=== PATIENT | female | born 1940 | race Caucasian/White ===

== ENCOUNTER → 2017-11-15 | Outpatient (CLI) | payer MEDICARE ==
--- NOTE | 2017-11-15 15:30 | US ---
EXAMINATION TYPE: US abdomen complete DATE OF EXAM: 11/15/2017 COMPARISON: NONE CLINICAL HISTORY: R74.8 Elevated liver enzymes; on medication for AFIB and HTN EXAM MEASUREMENTS: Liver Length: 14.1cm Gallbladder Wall: 0.1cm CBD: 0.5cm Spleen: 5.4cm Right Kidney: 9.9 x 4.9 x 3.8cm Left Kidney: 9.0 x 5.9 x 4.7cm Pancreas: wnl Liver: no masses are seen Gallbladder: wnl Evidence for sonographic Méndez's sign: no CBD: wnl Spleen: small for size Right Kidney: junctional wedge (fat)defect noted mid cortex on image #59, etc. Left Kidney: wnl Upper IVC: wnl Abd Aorta: size is wnl; intimal wall changes are noted distally IMPRESSION: 1. Visualized abdominal ultrasound appears unremarkable.
== END | disposition home or self-care (01) ==
LOC: RADUSWWP 08:59
PROVIDERS: ATTEND Family Medicine
DX: R74.8 Abnormal levels of other serum enzymes (principal)
CPT/HCPCS: 76700

== ENCOUNTER → 2018-06-06 | Outpatient (CLI) | payer MEDICARE ==
--- NOTE | 2018-06-06 12:28 | CT ---
EXAMINATION TYPE: CT brain wo con DATE OF EXAM: 06/06/2018 HISTORY: Dizziness, headache and nausea x couple days. Transient cerebral ischemic attack per order CT DLP: 1023.1 mGycm. Automated Exposure Control for Dose Reduction was Utilized. TECHNIQUE: CT scan of the head is performed without contrast. COMPARISON: None. FINDINGS: There is no acute intracranial hemorrhage or midline shift identified. There is diffuse v entricular and sulcal prominence consistent with diffuse age-related cerebral atrophy. There is low- attenuation in the periventricular white matter consistent with chronic small vessel ischemic change. There is 1.3 cm mucous retention cyst or polyp anterior left maxillary sinus axial image 2. Remain dionicio paranasal sinuses are clear. Globes are intact bilaterally. IMPRESSION: No acute intracranial hemorrhage or midline shift. There is mild to moderate diffuse ag e-related cerebral atrophy and chronic small vessel ischemic change noted.
== END ==
LOC: RADCTMAIN 11:30
PROVIDERS: ATTEND Family Medicine
DX: G31.1 Senile degeneration of brain, not elsewhere classified (principal); I67.82 Cerebral ischemia
CPT/HCPCS: 70450

== ENCOUNTER 2023-11-10 18:11 | Observation (INO) | payer MEDICARE ==
[2023-11-10 18:28] LABS: Glucose,Whole Blood 101 mg/dL (70-110)
[2023-11-10] MEDS: SODIUM CHLORIDE 0.9% 1,000 ML IV ONE (18:29)
--- NOTE | 2023-11-10 18:29 | ED ---
General Adult HPI - General Chief complaint: Fall Stated complaint: Altered Time Seen by Provider: 11/10/23 18:19 Source: patient, family, RN notes reviewed Mode of arrival: ambulatory Limitations: no limitations - History of Present Illness Initial comments: Patient is an 83-year-old female presenting to the emergency department with daughter with concern for possible TIA. Patient does have history of TIA with similar symptoms previously. Last known well was yesterday afternoon, greater than 24 hours ago. Patient did call daughter this afternoon however daughter was unable to answer it. Patient was found on the ground less than 2 hours prior to arrival. Patient did complain of feeling dizzy earlier. Patient is unable to recall whether or not she hit her head. Patient states she did twice earlier however denies it to me. When confronted by the daughter patient states she does not recall. No headache. No neck pain. No chest pain or dyspnea. No abdominal pain. Patient's history is inconsistent and patient does have some mild confusion. Patient is on Xarelto for A-fib - Related Data Allergies Allergy/AdvReac Type Severity Reaction Status Date / Time No Known Allergies Allergy Verified 11/10/23 18:19 Review of Systems ROS Statement: Those systems with pertinent positive or pertinent negative responses have been documented in the HPI. ROS Other: All systems not noted in ROS Statement are negative. Constitutional: Denies: fever Eyes: Denies: eye pain ENT: Denies: ear pain Respiratory: Denies: cough Cardiovascular: Denies: chest pain Endocrine: Denies: fatigue Neurological: Reports: as per HPI, confusion. Denies: headache Past Medical History Past Medical History: Hypertension History of Any Multi-Drug Resistant Organisms: None Reported Additional Past Surgical History / Comment(s): carotid stent Past Psychological History: No Psychological Hx Reported Smoking Status: Never smoker Past Alcohol Use History: None Reported Past Drug Use History: None Reported General Exam Limitations: no limitations General appearance: alert, in no apparent distress Head exam: Present: atraumatic, normocephalic Eye exam: Present: normal appearance, PERRL, EOMI ENT exam: Present: normal oropharynx Neck exam: Present: normal inspection. Absent: tenderness Respiratory exam: Present: normal lung sounds bilaterally Cardiovascular Exam: Present: irregular rhythm GI/Abdominal exam: Present: soft. Absent: tenderness Extremities exam: Present: normal inspection, full ROM. Absent: tenderness Neurological exam: Present: alert, CN II-XII intact. Absent: motor sensory deficit Expanded Neurological exam: Present: protecting the airway Patient oriented to: Present: person, place. Absent: time Speech: Present: fluid speech Cranial nerves: EOM's Intact: Normal, Facial Sensation: Normal Sensory exam: Upper Extremity Light Touch: Normal, Lower Extremity Light Touch: Normal Motor strength exam: RUE: 5, LUE: 5, RLE: 5, LLE: 5 Eye Response: (4) open spontaneously Motor Response: (6) obeys commands Verbal Response: (4) confused conversation Psychiatric exam: Present: normal affect, normal mood Skin exam: Present: normal color Course Vital Signs 11/10/23 11/10/23 11/10/23 18:13 18:25 18:52 Temperature 97.9 F Pulse Rate 102 H 89 91 Respiratory 18 16 16 Rate Blood Pressure 152/100 145/104 151/98 O2 Sat by Pulse 99 98 99 Oximetry EKG Findings - EKG Results: EKG: interpreted by ERMD (Septal Q waves.), normal axis, normal ST/T EKG shows: atrial fibrillation Medical Decision Making - Medical Decision Making Was pt. sent in by a medical professional or institution (, PA, FRUIT LOADER, urgent care, hospital, or long term...) When possible be specific @ -No Did you speak to anyone other than the patient for history (EMS, parent, family, police, friend...)? What history was obtained from this source @ -Is present helps provide history as patient does not recall well Did you review nursing and triage notes (agree or disagree)? Why? @ -I reviewed and agree with nursing and triage notes Were old charts reviewed (outside hosp., previous admission, EMS record, old EKG, old radiological studies, urgent care reports/EKG's, long term records)? Report findings @ -No old charts were reviewed Differential Diagnosis (chest pain, altered mental status, abdominal pain women, abdominal pain men, vaginal bleeding, weakness, fever, dyspnea, syncope, heada rosa, dizziness, GI bleed, back pain, seizure, CVA, palpatations, mental health, musculoskeletal)? @ -Differential Altered Mental Status: Hypoglycemia, DKA, hypercapnia, ETOH, overdose, CO poisoning, trauma, myxedema coma, HTN encephalopathy, infection, encephalitis, psychosis, intercranial hemorrhage, hepatic encephalopathy, meningitis, CVA, this is not meant to be an all-inclusive list EKG interpreted by me (3pts min.). @ -As above X-rays interpreted by me (1pt min.). @ -X-ray and pelvis x-ray showed no acute process CT interpreted by me (1pt min.). @ -Scan brain and cervical spine without acute abnormality. Degenerative disease of the disc. U/S interpreted by me (1pt. min.). @ -None done What testing was considered but not performed or refused? (CT, X-rays, U/S, labs)? Why? @ -None What meds were considered but not given or refused? Why? @ -None Did you discuss the management of the patient with other professionals (professionals i.e. , PA, FRUIT LOADER, lab, RT, psych nurse, rn social services, laboratory operations coordinator, teacher, sergeant of officers, transplant case manager)? Give summary @ -Case discussed with Dr. Chappell who will admit covering hospital call Was smoking cessation discussed for >3mins.? @ -No Was critical care preformed (if so, how long)? @ -No Were there social determinants of health that impacted care today? How? (Homelessness, low income, unemployed, alcoholism, drug addiction, transportati on, low edu. Level, literacy, decrease access to med. care, usp, rehab)? @ -No Was there de-escalation of care discussed even if they declined (Discuss DNR or withdrawal of care, Hospice)? DNR status @ -No What co-morbidities impacted this encounter? (DM, HTN, Smoking, COPD, CAD, Cancer, CVA, ARF, Chemo, Hep., AIDS, mental health diagnosis, sleep apnea, morbid obesity)? @ -History of TIA Was patient admitted / discharged? Hospital course, mention meds given and route, prescriptions, significant lab abnormalities, going to OR and other pertinent info. @ -Presents with confusion consistent with previous TIAs. CT scan unremarkable. Patient will be admitted with neurology consult. Admission orders written. Undiagnosed new problem with uncertain prognosis? @ -No Drug Therapy requiring intensive monitoring for toxicity (Heparin, Nitro, Insulin, Cardizem)? @ -No Were any procedures done? @ -No Diagnosis/symptom? @ -Confused Acute, or Chronic, or Acute on Chronic? @ -Acute Uncomplicated (without systemic symptoms) or Complicated (systemic symptoms)? @ -Default Side effects of treatment? @ -No Exacerbation, Progression, or Severe Exacerbation? @ -No Poses a threat to life or bodily function? How? (Chest pain, USA, ND, pneumonia, PE, COPD, DKA, ARF, appy, cholecystitis, CVA, Diverticulitis, Homicidal, Suicidal, threat to staff... and all critical care pts) @ -Threat to neurological function - Lab Data Result diagrams: 11/10/23 18:31 11/10/23 18:31 Lab Results 11/10/23 11/10/23 11/10/23 Range/Units 18:27 18:31 18:31 WBC 9.1 (3.8-10.6) k/uL RBC 5.22 (3.80-5.40) m/uL Hgb 16.4 H (11.4-16.0) gm/dL Hct 49.7 H (34.0-46.0) % MCV 95.1 (80.0-100.0) fL MCH 31.4 (25.0-35.0) pg MCHC 33.0 (31.0-37.0) g/dL RDW 13.3 (11.5-15.5) % Plt Count 249 (150-450) k/uL MPV 8.7 Neutrophils % 91 % Lymphocytes % 5 % Monocytes % 4 % Eosinophils % 1 % Basophils % 0 % Neutrophils # 8.2 H (1.3-7.7) k/uL Lymphocytes # 0.4 L (1.0-4.8) k/uL Monocytes # 0.3 (0-1.0) k/uL Eosinophils # 0.1 (0-0.7) k/uL Basophils # 0.0 (0-0.2) k/uL PT 11.4 (10.0-12.5) sec INR 1.1 (<1.2) APTT 29.0 (22.0-30.0) sec Sodium (137-145) mmol/L Potassium (3.5-5.1) mmol/L Chloride (98-107) mmol/L Carbon Dioxide (22-30) mmol/L Anion Gap mmol/L BUN (7-17) mg/dL Creatinine (0.52-1.04) mg/dL Est GFR (CKD-EPI)AfAm (>60 ml/min/1.73 sqM) Est GFR (CKD-EPI)NonAf (>60 ml/min/1.73 sqM) Glucose (74-99) mg/dL POC Glucose (mg/dL) 101 (70-110) mg/dL POC Glu Branch General Manager ID Gloria Sood Calcium (8.4-10.2) mg/dL Total Bilirubin (0.2-1.3) mg/dL AST (14-36) U/L ALT (4-34) U/L Alkaline Phosphatase (38-126) U/L Creatine Kinase (30-135) U/L Troponin I (0.000-0.034) ng/mL Total Protein (6.3-8.2) g/dL Albumin (3.5-5.0) g/dL Urine Color Urine Appearance (Clear) Urine pH (5.0-8.0) Ur Specific Alvin (1.001-1.035) Urine Protein (Negative) Urine Glucose (UA) (Negative) Urine Ketones (Negative) Urine Blood (Negative) Urine Nitrite (Negative) Urine Bilirubin (Negative) Urine Urobilinogen (<2.0) mg/dL Ur Leukocyte Esterase (Negative) Urine RBC (0-5) /hpf Urine WBC (0-5) /hpf Ur Squamous Epith Cells (0-4) /hpf Urine Bacteria (None) /hpf Urine Mucus (None) /hpf Urine Opiates Screen (NotDetected) Ur Oxycodone Screen (NotDetected) Urine Methadone Screen (NotDetected) Ur Barbiturates Screen (NotDetected) U Tricyclic Antidepress (NotDetected) Ur Phencyclidine Scrn (NotDetected) Ur Amphetamines Screen (NotDetected) U Methamphetamines Scrn (NotDetected) U Benzodiazepines Scrn (NotDetected) Urine Cocaine Screen (NotDetected) U Marijuana (THC) Screen (NotDetected) 11/10/23 11/10/23 11/10/23 Range/Units 18:31 18:31 18:31 WBC (3.8-10.6) k/uL RBC (3.80-5.40) m/uL Hgb (11.4-16.0) gm/dL Hct (34.0-46.0) % MCV (80.0-100.0) fL MCH (25.0-35.0) pg MCHC (31.0-37.0) g/dL RDW (11.5-15.5) % Plt Count (150-450) k/uL MPV Neutrophils % % Lymphocytes % % Monocytes % % Eosinophils % % Basophils % % Neutrophils # (1.3-7.7) k/uL Lymphocytes # (1.0-4.8) k/uL Monocytes # (0-1.0) k/uL Eosinophils # (0-0.7) k/uL Basophils # (0-0.2) k/uL PT (10.0-12.5) sec INR (<1.2) APTT (22.0-30.0) sec Sodium 134 L (137-145) mmol/L Potassium 4.9 (3.5-5.1) mmol/L Chloride 98 (98-107) mmol/L Carbon Dioxide 22 (22-30) mmol/L Anion Gap 14 mmol/L BUN 19 H (7-17) mg/dL Creatinine 0.96 (0.52-1.04) mg/dL Est GFR (CKD-EPI)AfAm 64 (>60 ml/min/1.73 sqM) Est GFR (CKD-EPI)NonAf 55 (>60 ml/min/1.73 sqM) Glucose 102 H (74-99) mg/dL POC Glucose (mg/dL) (70-110) mg/dL POC Glu Branch General Manager ID Calcium 10.5 H (8.4-10.2) mg/dL Total Bilirubin 1.1 (0.2-1.3) mg/dL AST 40 H (14-36) U/L ALT 27 (4-34) U/L Alkaline Phosphatase 94 (38-126) U/L Creatine Kinase 207 H (30-135) U/L Troponin I 0.021 (0.000-0.034) ng/mL Total Protein 8.8 H (6.3-8.2) g/dL Albumin 5.6 H (3.5-5.0) g/dL Urine Color Urine Appearance (Clear) Urine pH (5.0-8.0) Ur Specific Alvin (1.001-1.035) Urine Protein (Negative) Urine Glucose (UA) (Negative) Urine Ketones (Negative) Urine Blood (Negative) Urine Nitrite (Negative) Urine Bilirubin (Negative) Urine Urobilinogen (<2.0) mg/dL Ur Leukocyte Esterase (Negative) Urine RBC (0-5) /hpf Urine WBC (0-5) /hpf Ur Squamous Epith Cells (0-4) /hpf Urine Bacteria (None) /hpf Urine Mucus (None) /hpf Urine Opiates Screen Not Detected (NotDetected) Ur Oxycodone Screen Not Detected (NotDetected) Urine Methadone Screen Not Detected (NotDetected) Ur Barbiturates Screen Not Detected (NotDetected) U Tricyclic Antidepress Not Detected (NotDetected) Ur Phencyclidine Scrn Not Detected (NotDetected) Ur Amphetamines Screen Not Detected (NotDetected) U Methamphetamines Scrn Not Detected (NotDetected) U Benzodiazepines Scrn Not Detected (NotDetected) Urine Cocaine Screen Not Detected (NotDetected) U Marijuana (THC) Screen Not Detected (NotDetected) 11/10/23 Range/Units 18:31 WBC (3.8-10.6) k/uL RBC (3.80-5.40) m/uL Hgb (11.4-16.0) gm/dL Hct (34.0-46.0) % MCV (80.0-100.0) fL MCH (25.0-35.0) pg MCHC (31.0-37.0) g/dL RDW (11.5-15.5) % Plt Count (150-450) k/uL MPV Neutrophils % % Lymphocytes % % Monocytes % % Eosinophils % % Basophils % % Neutrophils # (1.3-7.7) k/uL Lymphocytes # (1.0-4.8) k/uL Monocytes # (0-1.0) k/uL Eosinophils # (0-0.7) k/uL Basophils # (0-0.2) k/uL PT (10.0-12.5) sec INR (<1.2) APTT (22.0-30.0) sec Sodium (137-145) mmol/L Potassium (3.5-5.1) mmol/L Chloride (98-107) mmol/L Carbon Dioxide (22-30) mmol/L Anion Gap mmol/L BUN (7-17) mg/dL Creatinine (0.52-1.04) mg/dL Est GFR (CKD-EPI)AfAm (>60 ml/min/1.73 sqM) Est GFR (CKD-EPI)NonAf (>60 ml/min/1.73 sqM) Glucose (74-99) mg/dL POC Glucose (mg/dL) (70-110) mg/dL POC Glu Branch General Manager ID Calcium (8.4-10.2) mg/dL Total Bilirubin (0.2-1.3) mg/dL AST (14-36) U/L ALT (4-34) U/L Alkaline Phosphatase (38-126) U/L Creatine Kinase (30-135) U/L Troponin I (0.000-0.034) ng/mL Total Protein (6.3-8.2) g/dL Albumin (3.5-5.0) g/dL Urine Color Light Yellow Urine Appearance Cloudy H (Clear) Urine pH 6.5 (5.0-8.0) Ur Specific Alvin 1.013 (1.001-1.035) Urine Protein Negative (Negative) Urine Glucose (UA) Negative (Negative) Urine Ketones 1+ H (Negative) Urine Blood Negative (Negative) Urine Nitrite Negative (Negative) Urine Bilirubin Negative (Negative) Urine Urobilinogen <2.0 (<2.0) mg/dL Ur Leukocyte Esterase Large H (Negative) Urine RBC 4 (0-5) /hpf Urine WBC 14 H (0-5) /hpf Ur Squamous Epith Cells 5 H (0-4) /hpf Urine Bacteria Rare H (None) /hpf Urine Mucus Rare H (None) /hpf Urine Opiates Screen (NotDetected) Ur Oxycodone Screen (NotDetected) Urine Methadone Screen (NotDetected) Ur Barbiturates Screen (NotDetected) U Tricyclic Antidepress (NotDetected) Ur Phencyclidine Scrn (NotDetected) Ur Amphetamines Screen (NotDetected) U Methamphetamines Scrn (NotDetected) U Benzodiazepines Scrn (NotDetected) Urine Cocaine Screen (NotDetected) U Marijuana (THC) Screen (NotDetected) Disposition Clinical Impression: Confusion Disposition: ADMITTED IP TO THIS [facility] Is patient prescribed a controlled substance at d/c from ED?: No Referrals: Porsche Sena MD [Primary Care Provider] - 1-2 days Time of Disposition: 20:28
[2023-11-10 18:50] LABS: Basophils % (A) 0 %; Eosinophils # (A) 0.1 k/uL (0-0.7); Eosinophils % (A) 1 %; HCT 49.7 % (34.0-46.0); HGB 16.4 gm/dL (11.4-16.0); Lymphocytes # (A) 0.4 k/uL (1.0-4.8); Lymphocytes % (A) 5 %; MCH 31.4 pg (25.0-35.0); MCV 95.1 fL (80.0-100.0); Mean Platelet Volume 8.7; Monocytes # (A) 0.3 k/uL (0-1.0); Monocytes % (A) 4 %; Neutrophils # (A) 8.2 k/uL (1.3-7.7); Neutrophils % (A) 91 %; Platelet Count 249 k/uL (150-450); RBC 5.22 m/uL (3.80-5.40); RDW 13.3 % (11.5-15.5); WBC 9.1 k/uL (3.8-10.6)
[2023-11-10 19:00] LABS: ALT 27 U/L (4-34); AST 40 U/L (14-36); African American GFR (CKD) 64 (>60 ml/min/1.73 sqM); Albumin 5.6 g/dL (3.5-5.0); Alkaline Phosphatase 94 U/L (38-126); Anion Gap 14 mmol/L; Blood Urea Nitrogen 19 mg/dL (7-17); Calcium 10.5 mg/dL (8.4-10.2); Carbon Dioxide 22 mmol/L (22-30); Chloride 98 mmol/L (98-107); Creatine Kinase 207 U/L (30-135); Glucose 102 mg/dL (74-99); Non-African American GFR(CKD) 55 (>60 ml/min/1.73 sqM); Potassium 4.9 mmol/L (3.5-5.1); Sodium 134 mmol/L (137-145); Total Bilirubin 1.1 mg/dL (0.2-1.3); Total Protein 8.8 g/dL (6.3-8.2)
[2023-11-10 19:03] LABS: INR 1.1 (<1.2); Prothrombin Time 11.4 sec (10.0-12.5)
--- NOTE | 2023-11-10 19:19 | XR ---
EXAMINATION TYPE: XR chest 1V portable DATE OF EXAM: 11/10/2023 7:12 PM CLINICAL INDICATION:Female, 83 years old with history of altered mental status COMPARISON: None TECHNIQUE: XR chest 1V portable Frontal view of the chest. FINDINGS: Lungs/Pleura: There is no evidence of pleural effusion, focal consolidation, or pneumothorax. Pulmonary vascularity: Unremarkable. Heart/mediastinum: Cardiomediastinal silhouette is unremarkable. Musculoskeletal: No acute osseous pathology. IMPRESSION: No acute cardiopulmonary disease/process.
--- NOTE | 2023-11-10 19:20 | XR ---
EXAMINATION TYPE: XR pelvis AP view DATE OF EXAM: 11/10/2023 7:12 PM CLINICAL INDICATION:Female, 83 years old with history of fall; [facility] COMPARISON: None TECHNIQUE: XR pelvis AP view, examined in a single projection. FINDINGS: No acute fractures or dislocation. Degenerative changes of the bony pelvis and bilateral hi ps. Partially visualized nonspecific nonobstructive bowel gas pattern. IMPRESSION: No acute osseous pathology.
--- NOTE | 2023-11-10 20:11 | CT ---
EXAMINATION TYPE: CT brain cspine wo con CT DLP: 1399.6 mGycm, Automated exposure control for dose reduction was used. DATE OF EXAM: 11/10/2023 6:47 PM COMPARISON: None. CLINICAL INDICATION:Female, 83 years old with history of altered mental status; AMS, fall. Initial e ncounter. TECHNIQUE: Brain: Multiple axial CT images of the brain were obtained without IV contrast. Cspine: Axial CT images from the skull base to the inferior aspect of T2 we obtained without intraven ous contrast. Coronal and sagittal reformatted images were also reviewed. FINDINGS: Study quality: Visualization of brain structures is diminished due to the presence of aneurysm or oth er surgical clips in the sella turcica. Brain: Extra-axial spaces: No abnormal extra-axial fluid collections. Ventricular system: Within normal limits Cerebral parenchyma: No acute intraparenchymal hemorrhage or mass effect. The vaughn-white junction is well differentiated. Scattered hypoattenuating areas are seen within the white matter consistent wit h chronic microangiopathy.. Cerebellum: Unremarkable. Mass effect: No evidence of midline shift. Intracranial vasculature: unremarkable Soft tissues: Normal. Calvarium/osseous structures: No depressed skull fracture. Paranasal sinuses and mastoid air cells: Clear. Visualized orbits: Orbital contents are intact. Cervical spine: Fracture: None. Osseous structures: Multilevel degenerative disc disease, endplate spondylosis. Facet osteoarthritis mostly moderately pronounced hypertrophic spurring. Atlantoaxial arthritic changes. Vertebral alignment: Within normal limits. Spinal canal/Neural Foramina: No evidence of significant spinal canal narrowing. No evidence for sign ificant neural foraminal stenosis. Neck soft tissues: Prevertebral soft tissues are within normal limits. Other: The airway is patent. The lung apices are clear. IMPRESSION: No acute intracranial process. Chronic microangiopathy. No evidence of cervical spine fracture. Moderately pronounced multilevel degenerative disc disease.
[2023-11-10 20:14] LABS: Appearance,Urine Cloudy (Clear); Bacteria,Urine Rare /hpf; Bilirubin,Urine Negative (Negative); Blood,Urine Negative (Negative); Color,Urine Light Yellow; Glucose,Urine (UA) Negative (Negative); Ketones,Urine 1+ (Negative); Leukocyte Esterase,Urine Large (Negative); Mucus,Urine Rare /hpf; Nitrite,Urine Negative (Negative); PH, Urine 6.5 (5.0-8.0); Protein,Urine Negative (Negative); RBC,Urine 4 /hpf (0-5); Specific Gravity,Urine 1.013 (1.001-1.035); Squamous Epithelial Cell,Urine 5 /hpf (0-4); Urobilinogen,Urine <2.0 mg/dL (<2.0); WBC,Urine 14 /hpf (0-5)
[2023-11-10 20:15] LABS: Amphetamine Screen,Urine Not Detected (NotDetected); Barbiturate Screen,Urine Not Detected (NotDetected); Benzodiazepines Screen,Urine Not Detected (NotDetected); Cocaine Screen,Urine Not Detected (NotDetected); Methadone Screen, Urine Not Detected (NotDetected); Opiate Screen,Urine Not Detected (NotDetected); Oxycodone Screen, Urine Not Detected (NotDetected); Phencyclidine Screen,Urine Not Detected (NotDetected); Tricyclic Antidepressant,Urine Not Detected (NotDetected); Urn Cannabinoid Scrn Not Detected (NotDetected)
[2023-11-10] MEDS: ASPIRIN 325 MG TAB PO STA (21:15)
[2023-11-10] MEDS: SODIUM CHLORIDE 0.9% 1,000 ML IV SCH (21:16)
--- NOTE | 2023-11-11 08:07 | US ---
EXAMINATION TYPE: US carotid duplex BILAT DATE OF EXAM: 11/10/2023 COMPARISON: NONE CLINICAL INDICATION: Female, 83 years old with history of Stenosis; Patient states right carotid sten t. Hx of fall TECHNIQUE: Carotid duplex ultrasound examination. Indirect Doppler criteria was utilized. FINDINGS: EXAM MEASUREMENTS: RIGHT: Peak Systolic Velocity (PSV) cm/sec ----- Right CCA: 55.1 ----- Right ICA: 96.9 ----- Right ECA: 54.9 ICA/CCA ratio: 1.8 RIGHT: End Diastole cm/sec ----- Right CCA: 17.3 ----- Right ICA: 25.8 ----- Right ECA: 12.1 LEFT: Peak Systolic Velocity (PSV) cm/sec ----- Left CCA: 58.1 ----- Left ICA: 95.6 ----- Left ECA: 41.0 ICA/CCA ratio: 1.6 LEFT: End Diastole cm/sec ----- Left CCA: 18.4 ----- Left ICA: 29.6 ----- Left ECA: 6.0 VERTEBRALS (direction of flow): Right Vertebral: Antegrade Left Vertebral: Antegrade Rhythm: Arrhythmia HUMAN RESOURCES MANAGER MANUFACTURING NOTES: No significant velocity elevations seen today IMPRESSION: No evidence for hemodynamically significant stenosis. Criteria for Assigning % of Stenosis / Diameter reduction (Estimation based on the indirect measurements of the internal carotid artery velocities (ICA PSV). 1. Normal (no stenosis)=ICA PSV < 125 cm/s: ratio < 2.0: ICA EDV<40 cm/s. 2. Less than 50% stenosis=ICA PSV < 125 cm/s: ratio < 2.0: ICA EDV<40 cm/s. 3. 50 to 69% stenosis=ICA PSV of 125 to 230 cm/s: ration 2.0 ? 4.0: ICA EDV 40-100 cm/s. 4. Greater than 70% stenosis to near occlusion= ICA PSV > 230 cm/s: ratio > 4.0: ICA EDV > 100 cm/s. 5. Near occlusion= ICA PSV velocities may be low or undetectable: variable ratio and ICA EDV. 6. Total occlusion=unable to detect flow.
[2023-11-11] MEDS: ASPIRIN 325 MG TAB PO SCH (08:43)
--- NOTE | 2023-11-11 12:26 | P.HPIM ---
History of Present Illness Patient pleasant 83-year-old female who is alert oriented x 3 when I evaluate the patient and history of dementia was brought in by daughter with concerns of TIA patient had slurred speech. Patient did not have any other weakness. When I asked the patient about her concerns were patient was complaining of lightheadedness to me denies any vertigo. Patient blood pressure was low. Patient does take lisinopril. Patient does have history of atrial fibrillation. Patient is on Xarelto for atrial fibrillation. Patient had a CT of the head which did not show any significant abnormality, carotid Doppler did not show any hemodynamic please significant stenosis. 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 Patient had a pelvic x-ray and hip x-ray which did not show any fractures. REVIEW OF SYSTEMS: All other systems are negative except those mentioned in the HPI PHYSICAL EXAMINATION: GENERAL: The patient is alert and oriented x3, not in any acute distress. Well developed, well nourished. HEENT: Pupils are round and equally reacting to light. EOMI. No scleral icterus. No conjunctival pallor. Normocephalic, atraumatic. No pharyngeal erythema. No thyromegaly. CARDIOVASCULAR: S1 and S2 present. No murmurs, rubs, or gallops. PULMONARY: Chest is clear to auscultation, no wheezing or crackles. ABDOMEN: Soft, nontender, nondistended, normoactive bowel sounds. No palpable organomegaly. MUSCULOSKELETAL: No joint swelling or deformity. EXTREMITIES: No cyanosis, clubbing, or pedal edema. NEUROLOGICAL: Gross neurological examination did not reveal any focal deficits. SKIN: No rashes. Assessment and plan -Lightheadedness: Probably due to hypotension discontinuing her antihypertensive medications patient will be monitored overnight continue with IV fluids -Complaints of slurred speech which were not evident when I evaluated the pa swatierin patient is undergoing evaluation for TIA neurology will evaluate the patient -Atrial fibrillation paroxysmal patient is presently sinus rhythm patient was resumed on home medications along with Xarelto -Hypertension patient is presently hypotensive patient may have lost weight because of her aging and will not require any antiemetics medications DVT prophylaxis: On anticoagulation with Xarelto Past Medical History Past Medical History: Hypertension History of Any Multi-Drug Resistant Organisms: None Reported Additional Past Surgical History / Comment(s): carotid stent Past Psychological History: No Psychological Hx Reported Smoking Status: Never smoker Past Alcohol Use History: None Reported Past Drug Use History: None Reported Medications and Allergies Home Medications Medication Instructions Recorded Confirmed Type Donepezil [Aricept] 10 mg PO DAILY 11/10/23 11/10/23 History Ergocalciferol [Vitamin D2 (1250 1,250 mcg PO PAREKH 11/10/23 11/10/23 History Mcg = 76268 Iu)] NIFEdipine XL [Procardia Xl] 30 mg PO DAILY 11/10/23 11/10/23 History Omeprazole 40 mg PO AC-BRKFST 11/10/23 11/10/23 History Oxybutynin Xl [Ditropan XL] 5 mg PO DAILY 11/10/23 11/10/23 History Rivaroxaban [Xarelto] 15 mg PO DAILY 11/10/23 11/10/23 History lisinopriL [Zestril] 10 mg PO HS 11/10/23 11/10/23 History lisinopriL [Zestril] 20 mg PO DAILY 11/10/23 11/10/23 History methocarbamoL [Robaxin-750] 750 mg PO HS 11/10/23 11/10/23 History Allergies Allergy/AdvReac Type Severity Reaction Status Date / Time No Known Allergies Allergy Verified 11/10/23 20:37 Physical Exam Vitals: Vital Signs Temp Pulse Resp BP Pulse Ox 11/11/23 12:17 79 16 98 11/11/23 11:15 98 14 100/77 98 11/11/23 10:09 87 16 132/77 98 11/11/23 09:04 67 18 143/86 99 11/11/23 08:41 98.3 F 75 18 136/95 99 11/11/23 08:00 98.4 F 64 16 135/93 98 11/11/23 06:14 96 16 122/91 94 L 11/11/23 02:53 71 18 140/105 99 11/11/23 01:35 72 16 140/97 99 11/10/23 21:40 93 16 146/107 98 11/10/23 18:52 91 16 151/98 99 11/10/23 18:25 89 16 145/104 98 11/10/23 18:13 97.9 F 102 H 18 152/100 99 Intake and Output 11/10/23 11/11/23 11/11/23 22:59 06:59 14:59 Other: Weight 61.235 kg Results CBC & Chem 7: 11/10/23 18:31 11/10/23 18:31 Labs: Abnormal Lab Results - Last 24 Hours (Table) 11/10/23 11/10/23 11/10/23 Range/Units 18:31 18:31 18:31 Hgb 16.4 H (11.4-16.0) gm/dL Hct 49.7 H (34.0-46.0) % Neutrophils # 8.2 H (1.3-7.7) k/uL Lymphocytes # 0.4 L (1.0-4.8) k/uL Sodium 134 L (137-145) mmol/L BUN 19 H (7-17) mg/dL Glucose 102 H (74-99) mg/dL Calcium 10.5 H (8.4-10.2) mg/dL AST 40 H (14-36) U/L Creatine Kinase 207 H (30-135) U/L Total Protein 8.8 H (6.3-8.2) g/dL Albumin 5.6 H (3.5-5.0) g/dL Urine Appearance Cloudy H (Clear) Urine Ketones 1+ H (Negative) Ur Leukocyte Esterase Large H (Negative) Urine WBC 14 H (0-5) /hpf Ur Squamous Epith Cells 5 H (0-4) /hpf Urine Bacteria Rare H (None) /hpf Urine Mucus Rare H (None) /hpf
--- NOTE | 2023-11-11 12:26 | P.CNNES ---
History of Present Illness Consult date: 11/11/23 Requesting physician: Raciel Singh Reason for Consult: confusion History of Present Illness: This is an 83-year-old woman who presents to the emergency department because of a fall and feeling lightheaded. Patient states that while at home about 2 days ago she tripped walking in the garage and she miscalculated the step as a result she fell but denies loss of consciousness or head trauma. She denies any urinary or bowel incontinence. No yesterday she felt she is having some speech difficulty. She stated prior to the episode she also felt lightheaded. Denies any focal weakness, numbness, or swallowing issues. She feels in the last few days to a week she has been having spasming of the toes bilaterally and she feels sometimes the spasm is causing the feet to curl down or curl up. Denies any spasm anywhere else. Have lower back pain in the mid region without any radiation or bladder or bowel issues recently. She did acknowledge that she has history of possible stroke in the past as well TIA. She had a right carotid stent about 2 years ago. She has a history of A-fib and she is on Xarelto. Denies tobacco or alcohol use or any illicit drug use. The ED team seems the patient was found on the ground less than 2 hours prior to arrival to our facility. It seems the patient called her daughter yesterday in the afternoon however daughter was unable to answered. Patient was found on the ground as a earlier. She complained dizziness to the ED but for me upon further history she stated lightheadedness. Per the ED the history is inconsistent and the patient does have some confusion. Some of the workup during this hospital visit consisted of: Sodium is 134, calcium is at 10.5, AST is a 40 ALT 27 CK level is 207 Urinalysis is leukocyte esterase is large, urine white blood cells 14 and urine bacteria is rare. CT head is reported as no acute intracranial process. Chronic microangiopathy. I personally reviewed the CT and I agree there is no acute or subacute process CT cervical spine is reported as no evidence of cervical spine fracture. Moderately pronounced multilevel degenerative disc disease. Carotid duplex is reported as no evidence for hemodynamically significant stenosis Review of Systems The positive and negative as per HPI. Past Medical History Past Medical History: Hypertension History of Any Multi-Drug Resistant Organisms: None Reported Additional Past Surgical History / Comment(s): carotid stent Past Psychological History: No Psychological Hx Reported Smoking Status: Never smoker Past Alcohol Use History: None Reported Past Drug Use History: None Reported Medications and Allergies Home Medications Medication Instructions Recorded Confirmed Type Donepezil [Aricept] 10 mg PO DAILY 11/10/23 11/10/23 History Ergocalciferol [Vitamin D2 (1250 1,250 mcg PO PAREKH 11/10/23 11/10/23 History Mcg = 34322 Iu)] NIFEdipine XL [Procardia Xl] 30 mg PO DAILY 11/10/23 11/10/23 History Omeprazole 40 mg PO AC-BRKFST 11/10/23 11/10/23 History Oxybutynin Xl [Ditropan XL] 5 mg PO DAILY 11/10/23 11/10/23 History Rivaroxaban [Xarelto] 15 mg PO DAILY 11/10/23 11/10/23 History lisinopriL [Zestril] 10 mg PO HS 11/10/23 11/10/23 History lisinopriL [Zestril] 20 mg PO DAILY 11/10/23 11/10/23 History methocarbamoL [Robaxin-750] 750 mg PO HS 11/10/23 11/10/23 History Allergies Allergy/AdvReac Type Severity Reaction Status Date / Time No Known Allergies Allergy Verified 11/10/23 20:37 Physical Examination - Vital Signs Vital Signs: Vital Signs Temp Pulse Resp BP Pulse Ox 11/11/23 11:15 98 14 100/77 98 11/11/23 10:09 87 16 132/77 98 11/11/23 09:04 67 18 143/86 99 11/11/23 08:41 98.3 F 75 18 136/95 99 11/11/23 08:00 98.4 F 64 16 135/93 98 11/11/23 06:14 96 16 122/91 94 L 11/11/23 02:53 71 18 140/105 99 11/11/23 01:35 72 16 140/97 99 11/10/23 21:40 93 16 146/107 98 11/10/23 18:52 91 16 151/98 99 11/10/23 18:25 89 16 145/104 98 11/10/23 18:13 97.9 F 102 H 18 152/100 99 Intake and Output 0811/11/23 11/11/23 22:59 06:59 14:59 Other: Weight 61.235 kg GENERAL: The patient is lying in bed and is not in acute distress. NEUROLOGICAL: Higher mental function: The patient is awake, alert, oriented to self, place and time. Patient is following commands. No aphasia and no neglect. Cranial nerves: The pupils are round, equal and reactive to light and accommodation. Visual brooks are full to confrontation throughout. Extraocular movement is intact no nystagmus is noted. Facial sensation is normal to touch throughout. The facial strength is normal throughout. Hearing is mildly decreased bilaterally to hand rub. Tongue is midline and moved [id number] without any difficulty. No dysarthria is noted. Shoulder shrug is normal bilaterally. Motor: The strength is 5 over 5 throughout. Normal tone and bulk. Cerebellum: Normal finger to nose heel to chin bilaterally. Sensation: Sensation is normal to touch throughout. Reflexes (right/left): 2+ throughout except ankles are 1+. Plantars are mute bilaterally. Results - Laboratory Findings CBC and BMP: 11/10/23 18:31 11/10/23 18:31 Abnormal Lab Findings: Abnormal Labs 11/10/23 11/10/23 11/10/23 18:31 18:31 18:31 Hgb 16.4 H Hct 49.7 H Neutrophils # 8.2 H Lymphocytes # 0.4 L Sodium 134 L BUN 19 H Glucose 102 H Calcium 10.5 H AST 40 H Creatine Kinase 207 H Total Protein 8.8 H Albumin 5.6 H Urine Appearance Cloudy H Urine Ketones 1+ H Ur Leukocyte Esterase Large H Urine WBC 14 H Ur Squamous Epith Cells 5 H Urine Bacteria Rare H Urine Mucus Rare H Assessment and Plan Assessment: Is an 83-year-old woman who presented emergency department on 11/10/2023 because of a fall that occurred on 11/09/2023. She stated that she fell since she miscalculated step in the garage but denies any loss of consciousness. Also felt lightheaded prior to the episode. she felt her speech was off yesterday. She denies any focal weakness numbness. She has been having some spasming of the toes in the last 1 week and having low back pain in the last 1 week as well. Denies any radicular symptoms or bladder or bowel issues. Recent speech difficulty with feeling lightheadedness and fall: Rule out stroke vs TIA Episode of altered mental status in the ED probable due to metabolic encephalopathy--on my examination patient was alert oriented x 4. Low back pain History of right carotid stents History of TIA and probable stroke about 2 years ago History of A-fib on Xarelto Plan: I ordered MRI of the brain any acute or subacute stroke. 2D echo, lipid panel are ordered and pending I ordered routine EEG for episode of confusion to rule out any active seizure or discharges which is I feel unlikely TSH, vitamin B12, folate, hemoglobin A1c Patient was started on aspirin 325 mg daily ED team and I lowered it to 81 mg daily since the patient is already on her home dose of Xarelto and to avoid increased risk for bleed. Started the patient on Lipitor 20 mg nightly for secondary stroke prophylaxis Continue neurochecks Cardiac monitoring PT OT and [employer] are consulted For the rest of the medical management the primary team For DVT prophylaxis patient is on Xarelto Discharge the patient needs to follow-up with her neurologist as an outpatient within 1 to 2 weeks. Thank your for the consultation. Time with Patient: Greater than 30
--- NOTE | 2023-11-11 13:16 | CA ---
Transthoracic Echo Report Name: Mariana Barnett Age: 83 Gender: F : 1940 Exam Date: 11/11/2023 09:17 Exam Location: [facility] Ht (in): 63 Wt (lb): 135 Ordering Physician: Raciel Singh DO Attending/Referring Phys: Data Clerk Saira Feng RDCS Procedure CPT: Indications: Thrombus Cardiac Hx: A-FIB Technical Quality: Fair Contrast 1: Total Dose (mL): Contrast 2: Total Dose (mL): MEASUREMENTS (Male / Female) Normal Values 2D ECHO LV Diastolic Diameter PLAX 2.8 cm 4.2 - 5.9 / 3.9 - 5.3 cm LV Systolic Diameter PLAX 2.1 cm IVS Diastolic Thickness 1.2 cm 0.6 - 1.0 / 0.6 - 0.9 cm LVPW Diastolic Thickness 1.2 cm 0.6 - 1.0 / 0.6 - 0.9 cm LV Relative Wall Thickness 0.9 RV Internal Dim ED PLAX 2.2 cm Aortic Root Diameter 3.3 cm LA Systolic Diameter LX 2.9 cm 3.0 - 4.0 / 2.7 - 3.8 cm LV Diastolic Volume MOD BP 32.5 cm??? 67 - 155 / 56 - 104 cm??? LV Systolic Volume MOD BP 10.3 cm??? 22 - 58 / 19 - 49 cm??? LV Ejection Fraction MOD BP 68.5 % >= 55 % LV Cardiac Index MOD BP 1047.2 cm???/min???m??? LV Diastolic Volume MOD 4C 32.7 cm??? LV Systolic Volume MOD 4C 10.5 cm??? LV Ejection Fraction MOD 4C 67.9 % LV Cardiac Index MOD 4C 1044.6 cm???/min???m??? LV Diastolic Length 4C 5.8 cm LV Systolic Length 4C 5.0 cm LV Diastolic Volume MOD 2C 32.5 cm??? LV Systolic Volume MOD 2C 10.3 cm??? LV Ejection Fraction MOD 2C 68.2 % LV Cardiac Index MOD 2C 1044.6 cm???/min???m??? LV Diastolic Length 2C 5.8 cm LV Systolic Length 2C 4.8 cm M-MODE Aortic Root Diameter MM 3.0 cm LA Systolic Diameter MM 2.9 cm LA Ao Ratio MM 0.9 AV Cusp Separation MM 1.9 cm DOPPLER MV E' Velocity 7.3 cm/s TR Peak Velocity 241.6 cm/s TR Peak Gradient 24.1 mmHg Right Ventricular Systolic Press 34.1 mmHg FINDINGS Left Ventricle Left ventricular ejection fraction is estimated at 60-65 %. Mildly increased septal wall thickness. Mildly increased posterior wall thickness. Normal left ventricular wall motion. Right Ventricle Mild right ventricular dilatation. Right ventricular systolic pressure within normal limits. Right Atrium Severe right atrial dilatation. Left Atrium Severe left atrial dilatation. Mitral Valve Mitral valve thickened. Mitral annular calcification. Mild mitral regurgitation. Aortic Valve Trileaflet aortic valve. Diffuse thickening (sclerosis) of the aortic valve cusps without reduced excursion. No aortic regurgitation. Tricuspid Valve Structurally normal tricuspid valve. Moderate tricuspid regurgitation. No tricuspid stenosis. Pulmonic Valve Structurally normal pulmonic valve. Trace pulmonic regurgitation. No pulmonic stenosis. Pericardium No pericardial or pleural effusion. Aorta Normal size aortic root and proximal ascending aorta. CONCLUSIONS Diagnosis CVA, evaluate for thrombus LVH with preserved systolic function Mild RV enlargement Biatrial enlargement Aortic sclerosis without stenosis No intracardiac mass Previewed by: Dr. Lane Lew MD (Electronically Signed) Final Date: 11 November 2023 13:15
[2023-11-11] MEDS: methocarbamoL 750 MG TAB PO SCH (14:10)
[2023-11-11] MEDS: RIVAROXABAN 15 MG TAB PO SCH (14:14)
[2023-11-11 17:41] LABS: Chol/HDL Ratio 2.26 Ratio; LDL Cholesterol,Calculated 150.4 mg/dL (0.0-131.0); VLDL Calculation 14.58 mg/dL (5.00-40.00)
[2023-11-11] MEDS: QUEtiapine 25 MG TAB PO PRN (18:27)
[2023-11-11] MEDS: ATORVASTATIN 20 MG TAB PO SCH (20:37)
[2023-11-11] MEDS: HALOPERIDOL LACTATE 5 MG/ML 1 ML VIAL IVP ONE (21:09)
--- NOTE | 2023-11-12 02:05 | EEG ---
ELECTROENCEPHALOGRAM REPORT CLINICAL HISTORY: This is an 83-year-old woman with altered mental status. The video EEG is obtained to evaluate for seizure epileptiform activity. RELEVANT MEDICATION: Robaxin. EEG TYPE: A routine 21-channel EEG with video using the 10/20 electrode placement system. DESCRIPTION: Wakefulness and drowsiness are obtained. During awake state, the background consists of low voltage of 8 to 8.5 hertz activity. There is no physiological stage 2 sleep architecture. There is no focal slowing. Interictal and ictal is none. ACTIVATION PROCEDURE: Photic stimulation did not evoke a posterior driving response. There is no abnormality during the photic stimulation. Hyperventilation is not performed. CLINICAL INTERPRETATION: This is a normal routine EEG. There is no focal slowing, epileptiform discharge, or seizure on the EEG. A normal routine EEG does not rule out underlying epilepsy. Clinical correlation is recommended. FAN / CATALINA: [id number] / MTDD
[2023-11-12] MEDS: HALOPERIDOL LACTATE 5 MG/ML 1 ML VIAL IVP ONE (04:35)
[2023-11-12] MEDS: PANTOPRAZOLE 40 MG TABLET PO SCH (06:20)
[2023-11-12] MEDS: OXYBUTYNIN XL 5 MG TAB.ER.24 PO SCH (07:58)
[2023-11-12] MEDS: ASPIRIN 81 MG PO SCH (07:58)
[2023-11-12] MEDS: DONEPEZIL 10 MG TAB PO SCH (07:58)
--- NOTE | 2023-11-12 14:28 | P.PN ---
Subjective Progress Note Date: 11/12/23 I am following-up with patient and she states the overnight nurse had her hands restrained and placed a kendrick catheters. She has sitter at bedside. Otherwise no new neurological issues. Objective - Vital Signs Vital signs: Vital Signs Temp 97.8 F 11/12/23 11:30 Pulse 94 11/12/23 11:30 Resp 16 11/12/23 11:30 BP 145/81 11/12/23 11:30 Pulse Ox 98 11/12/23 11:30 FiO2 Intake & Output 11/11/23 11/12/23 11/12/23 18:59 06:59 18:59 Intake Total 550 Output Total 1100 300 Balance 550 -1100 -300 Weight 89 kg Intake: IV 10 Invasive Line 1 10 Oral 540 Output: Urine 500 300 Post Void Residual 600 Other: Voiding Method Toilet Toilet Indwelling Catheter - Exam General: Lying in bed and is not in acute distress. Neuro: Somewhat limited. Patient is slightly drowsy but does wake up to voice. Is oriented to self time. She stated she is on a vacation. She is following simple commands. She was able to name current state and the [facility]. No aphasia. Pupils are round equal reactive to light. Visual brooks are full to confrontation. No facial weakness. No dysarthria Motor is lifting all extremity above gravity equally. Some of the workup during this hospital visit consisted of: CK level is 207 Lipid panel is triglyceride 72, cholesterol is 296, LDL is 115, HDL 631. Hemoglobin A1c is 6.0. Urinalysis is leukocyte esterase is large, urine white blood cells 14 and urine bacteria is rare. CT head is reported as no acute intracranial process. Chronic microangiopathy. I personally reviewed the CT and I agree there is no acute or subacute process CT cervical spine is reported as no evidence of cervical spine fracture. Moderately pronounced multilevel degenerative disc disease. Carotid duplex is reported as no evidence for hemodynamically significant stenosis 2D echo is reported as left ventricular hypertrophy with preserved systolic function. Mild right ventricular enlargement. Biatrial enlargement. Aortic sclerosis without stenosis. No intracardiac mass Routine EEG is normal - Labs CBC & Chem 7: 11/10/23 18:31 11/10/23 18:31 Labs: Abnormal Lab Results - Last 24 Hours (Table) 11/10/23 Range/Units 18:31 Cholesterol 296.00 H (0.00-200.00) mg/dL LDL Cholesterol, Calc 150.4 H (0.0-131.0) mg/dL HDL Cholesterol 131.00 H (40.00-60.00) mg/dL Assessment and Plan Assessment: Is an 83-year-old woman who presented emergency department on 11/10/2023 because of a fall that occurred on 11/09/2023. She stated that she fell since she miscalculated step in the garage but denies any loss of consciousness. Also felt lightheaded prior to the episode. she felt her speech was off yesterday. She denies any focal weakness numbness. She has been having some spasming of the toes in the last 1 week and having low back pain in the last 1 week as well. Denies any radicular symptoms or bladder or bowel issues. Recent speech difficulty with feeling lightheadedness and fall: Rule out stroke vs TIA Altered mental status is likely due to metabolic encephalopathy. EEG is normal. Low back pain History of right carotid stents History of TIA and probable stroke about 2 years ago History of A-fib on Xarelto Plan: Pending MRI of the brain any acute or subacute stroke. Pending TSH, vitamin B12, folate. Patient was started on aspirin 325 mg daily ED team and I lowered it to 81 mg daily since the patient is already on her home dose of Xarelto and to avoid increased risk for bleed. Started the patient on Lipitor 20 mg nightly for secondary stroke prophylaxis Continue neurochecks Cardiac monitoring PT OT and [employer] are consulted For the rest of the medical management the primary team For DVT prophylaxis patient is on Xarelto Upon discharge the patient needs to follow-up with her neurologist as an outpatient within 1 to 2 weeks. Time with Patient: Less than 30
--- NOTE | 2023-11-12 18:06 | P.PN ---
Subjective Progress Note Date: 11/12/23 Patient pleasant 83-year-old female who is alert oriented x 3 when I evaluate the patient and history of dementia was brought in by daughter with concerns of TIA patient had slurred speech. Patient did not have any other weakness. When I asked the patient about her concerns were patient was complaining of lightheadedness to me denies any vertigo. Patient blood pressure was low. Patient does take lisinopril. Patient does have history of atrial fibrillation. Patient is on Xarelto for atrial fibrillation. Patient had a CT of the head which did not show any significant abnormality, carotid Doppler did not show any hemodynamic please significant stenosis. 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 Patient had a pelvic x-ray and hip x-ray which did not show any fractures. 11/12/2023 Patient is evaluated today in follow up on the medical floor. Alert and oriented x 4 and continues with moments of confusion. Was quite agitated last night and required IV sedation as well as soft wrist restraints. Today patient is out of the restraints and more cooperative. Echocardiogram done showing preserved systolic function and mild RV enlargement, biatrial enlargement, aortic sclerosis without stenosis. No intracardiac mass. EEG was a normal routine EEG there is no focal slowing, epileptiform discharge or seizure on EEG. Patient is anticoagulated with xarelto and has been started on aspirin 81 mg daily. Review of Systems Constitutional: Denied any fatigue denied any fever. Cardio vascular: denied any chest pain, palpitations Gastrointestinal: denied any nausea, vomiting, diarrhea Pulmonary: Denied any shortness of breath cough Neurologic denied any new focal deficits All inpatient medications were reviewed and appropriate changes in these medications as dictated in the interval history and assessment and plan. PHYSICAL EXAMINATION: GENERAL: The patient is alert and oriented x3, not in any acute distress. Well developed, well nourished. HEENT: Pupils are round and equally reacting to light. EOMI. No scleral icterus. No conjunctival pallor. Normocephalic, atraumatic. No pharyngeal erythema. No thyromegaly. CARDIOVASCULAR: S1 and S2 present. No murmurs, rubs, or gallops. PULMONARY: Chest is clear to auscultation, no wheezing or crackles. ABDOMEN: Soft, nontender, nondistended, normoactive bowel sounds. No palpable organomegaly. MUSCULOSKELETAL: No joint swelling or deformity. EXTREMITIES: No cyanosis, clubbing, or pedal edema. NEUROLOGICAL: Gross neurological examination did not reveal any focal deficits. SKIN: No rashes. Assessment and plan -Lightheadedness: Probably due to hypotension was given IV fluids, blood pressure is now elevated will resume lisinopril daily and recommend to hold off the nifedipine. -Complaints of slurred speech which were not evident when I evaluated the patient patient is undergoing evaluation for TIA neurology following, work up negative so far. Brain MRI is ordered and pending. -Atrial fibrillation paroxysmal patient is presently sinus rhythm patient was resumed on home medications along with Xarelto has been started on aspirin 81 mg daily. -Hypertension as above resumed on lisinopril and holding nifedipine. -Dementia on aricept patient had altered mental status which was hospital delirium not expected to fully improve while in the hospital because of the history of dementia. Hold of on using ativan and haldol and will use seroquel as needed. DVT prophylaxis: On anticoagulation with Xarelto Gi prophylaxis: Pepcid The impression and plan of care has been dictated by Valeria Beckford, Nurse Practitioner as directed. Dr. Bella MD I have performed a history and physical examination and medical decision making of this patient, discussed the same with the dictator, and agree with the dictators assessment and plan as written, documented as a scribe. Based on total visit time, I have performed more than 50% of this visit. Objective - Vital Signs Vital signs: Vital Signs Temp 97.4 F L 11/12/23 08:00 Pulse 112 H 11/12/23 08:00 Resp 14 11/12/23 08:00 BP 179/111 11/12/23 08:32 Pulse Ox 97 11/12/23 08:00 FiO2 Intake & Output 11/11/23 11/12/23 11/12/23 18:59 06:59 18:59 Intake Total 550 Output Total 1100 Balance 550 -1100 Weight 89 kg Intake: IV 10 Invasive Line 1 10 Oral 540 Output: Urine 500 Post Void Residual 600 Other: Voiding Method Toilet Toilet Indwelling Catheter - Labs CBC & Chem 7: 11/10/23 18:31 11/10/23 18:31 Labs: Abnormal Lab Results - Last 24 Hours (Table) 11/10/23 Range/Units 18:31 Cholesterol 296.00 H (0.00-200.00) mg/dL LDL Cholesterol, Calc 150.4 H (0.0-131.0) mg/dL HDL Cholesterol 131.00 H (40.00-60.00) mg/dL Assessment and Plan Time with Patient: Less than 30
[2023-11-12] MEDS: lisinopriL 20 MG TAB PO SCH (19:45)
[2023-11-13 09:18] VITALS: RESP 16
--- NOTE | 2023-11-13 16:04 | P.PN ---
Subjective Progress Note Date: 11/13/23 Patient pleasant 83-year-old female who is alert oriented x 3 when I evaluate the patient and history of dementia was brought in by daughter with concerns of TIA patient had slurred speech. Patient did not have any other weakness. When I asked the patient about her concerns were patient was complaining of lightheadedness to me denies any vertigo. Patient blood pressure was low. Patient does take lisinopril. Patient does have history of atrial fibrillation. Patient is on Xarelto for atrial fibrillation. Patient had a CT of the head which did not show any significant abnormality, carotid Doppler did not show any hemodynamic please significant stenosis. 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 Patient had a pelvic x-ray and hip x-ray which did not show any fractures. 11/12/2023 Patient is evaluated today in follow up on the medical floor. Alert and oriented x 4 and continues with moments of confusion. Was quite agitated last night and required IV sedation as well as soft wrist restraints. Today patient is out of the restraints and more cooperative. Echocardiogram done showing preserved systolic function and mild RV enlargement, biatrial enlargement, aortic sclerosis without stenosis. No intracardiac mass. EEG was a normal routine EEG there is no focal slowing, epileptiform discharge or seizure on EEG. Patient is anticoagulated with xarelto and has been started on aspirin 81 mg daily. 11/13/2023 Patient is evaluated in follow-up today on the medical floor. She remains alert and oriented x 4 and she is less confused today. Patient's Cazares catheter has been removed and she is urinating without difficulty. Patient is more understanding of the need to remain in the hospital to finish her stroke workup and is currently pending a brain MRI. The panel was done revealing age-adjusted level of 72, cholesterol 296, LDL 150 and an HDL of 131. Review of Systems Constitutional: Denied any fatigue denied any fever. Cardio vascular: denied any chest pain, palpitations Gastrointestinal: denied any nausea, vomiting, diarrhea Pulmonary: Denied any shortness of breath cough Neurologic denied any new focal deficits All inpatient medications were reviewed and appropriate changes in these medicat ions as dictated in the interval history and assessment and plan. PHYSICAL EXAMINATION: GENERAL: The patient is alert and oriented x3, not in any acute distress. Well developed, well nourished. HEENT: Pupils are round and equally reacting to light. EOMI. No scleral icterus. No conjunctival pallor. Normocephalic, atraumatic. No pharyngeal erythema. No thyromegaly. CARDIOVASCULAR: S1 and S2 present. No murmurs, rubs, or gallops. PULMONARY: Chest is clear to auscultation, no wheezing or crackles. ABDOMEN: Soft, nontender, nondistended, normoactive bowel sounds. No palpable organomegaly. MUSCULOSKELETAL: No joint swelling or deformity. EXTREMITIES: No cyanosis, clubbing, or pedal edema. NEUROLOGICAL: Gross neurological examination did not reveal any focal deficits. SKIN: No rashes. Assessment and plan -Lightheadedness: Probably due to hypotension was given IV fluids, blood pres sure is now elevated will resume lisinopril daily and recommend to hold off the nifedipine. -Complaints of slurred speech which were not evident when I evaluated the patient patient is undergoing evaluation for TIA neurology following, work up negative so far. Brain MRI is ordered and pending. -Atrial fibrillation paroxysmal patient is presently sinus rhythm patient was resumed on home medications along with Xarelto has been started on aspirin 81 mg daily. -Hypertension as above resumed on lisinopril and holding nifedipine. -Dementia on aricept patient had altered mental status which was hospital delirium not expected to fully improve while in the hospital because of the history of dementia. Hold of on using ativan and haldol and will use seroquel as needed. DVT prophylaxis: On anticoagulation with Xarelto Gi prophylaxis: Pepcid The impression and plan of care has been dictated by Valeria Beckford, Nurse Practitioner as directed. Dr. Bella MD I have performed a history and physical examination and medical decision making of this patient, discussed the same with the dictator, and agree with the dictators assessment and plan as written, documented as a scribe. Based on total visit time, I have performed more than 50% of this visit. Objective - Vital Signs Vital signs: Vital Signs Temp 97.9 F 11/13/23 04:00 Pulse 76 11/13/23 04:00 Resp 18 11/13/23 04:00 BP 135/96 11/13/23 04:00 Pulse Ox 100 11/13/23 04:00 FiO2 Intake & Output 11/12/23 11/13/23 11/13/23 18:59 06:59 18:59 Intake Total 118 10 Output Total 300 Balance -182 10 Intake: IV 10 Invasive Line 1 10 Oral 118 Output: Urine 300 Other: Voiding Method Indwelling Catheter Toilet # Voids 2 - Labs CBC & Chem 7: 11/10/23 18:31 11/10/23 18:31 Assessment and Plan Time with Patient: Less than 30
[2023-11-14 04:47] VITALS: BP 107/70; PULSE 61; TEMP 97.6
[2023-11-14] MEDS ORDERED: OXYBUTYNIN XL 5 MG TAB.ER.24 PO ONE (09:43)
[2023-11-14] MEDS ORDERED: lisinopriL 20 MG TAB ONE (09:43)
[2023-11-14] MEDS ORDERED: DONEPEZIL 10 MG TAB ONE (09:43)
[2023-11-14] MEDS ORDERED: ASPIRIN 81 MG ONE (09:43)
[2023-11-14] MEDS ORDERED: RIVAROXABAN 15 MG TAB ONE (09:44)
[2023-11-14] MEDS ORDERED: ATORVASTATIN 20 MG TAB ONE (21:14)
[2023-11-15] MEDS ORDERED: OXYBUTYNIN XL 5 MG TAB.ER.24 PO ONE (08:30)
[2023-11-15] MEDS ORDERED: DONEPEZIL 10 MG TAB ONE (08:30)
[2023-11-15] MEDS ORDERED: lisinopriL 20 MG TAB ONE (08:30)
[2023-11-15] MEDS ORDERED: ASPIRIN 81 MG ONE (08:30)
[2023-11-15] MEDS ORDERED: RIVAROXABAN 15 MG TAB ONE (08:31)
[2023-12-07 12:08] LABS: Glucose 92 mg/dL (74-99); Sodium 130 mmol/L (137-145)
[2023-12-07 12:09] LABS: African American GFR (CKD) 85 (>60 ml/min/1.73 sqM); Anion Gap 3 mmol/L; Blood Urea Nitrogen 19 mg/dL (7-17); Carbon Dioxide 21 mmol/L (22-30); Chloride 106 mmol/L (98-107); Non-African American GFR(CKD) 74 (>60 ml/min/1.73 sqM); Potassium 4.2 mmol/L (3.5-5.1)
--- NOTE | 2023-12-15 15:29 | MR ---
EXAMINATION TYPE: MR brain wo/w con DATE OF EXAM: 11/15/2023 COMPARISON: None available during downtime HISTORY: 83-year-old female with confusion TECHNIQUE: Multiplanar, multisequence images of the brain and brainstem were acquired before and aft er administration of 6 mL IV Gadavist. Diffusion weighted imaging is performed. FINDINGS: No evidence for acute infarction, hemorrhage, mass, mass effect, midline shift, herniation, effacemen t of basal cisterns, or extra-axial fluid collection. Mild to moderate generalized supratentorial volume loss. Secondary mild ventriculomegaly, Roman's rati o calculated at 0.31. Major intracranial flow voids are intact. However, partially enhancing 1.1 cm area of nodular suscept ibility at the right sellar/parasellar region is noted. T2/FLAIR weighted sequences show moderate to severe patchy white matter change throughout the periven tricular, subcortical, deep white matter regions of both cerebral hemispheres. Midline structures demonstrate normal morphology. The craniocervical junction is normal. Post contrast images demonstrate no other evidence of pathologic enhancement. Dural venous sinuses a re patent. 1.4 cm mucosal retention cyst anterior floor of the left maxillary sinus. Trace mucosal thickening et hmoid air cells and frontal sinuses. Slight leftward nasal septal deviation. Globes are intact. IMPRESSION: 1. No acute intracranial abnormality seen. 2. A 1.1 cm round area of susceptibility artifact in the right sellar/parasellar region shows partial enhancement. Unable to exclude a saccular aneurysm of the cavernous segment right ICA. Further thin cut CTA evaluation recommended. 3. Mild to moderate cerebral atrophy. Mild ventriculomegaly likely secondary to central volume loss. 4. Moderate to severe burden of chronic small vessel ischemic disease.
== END 2023-11-15 18:25 | disposition home or self-care (01) ==
LOC: EC 18:11 → 3SCARD 20:29
PROVIDERS: ADMIT Internal Medicine; ATTEND Internal Medicine
DX: R42 Dizziness and giddiness (principal); R47.81 Slurred speech; M54.50 Low back pain, unspecified; I11.9 Hypertensive heart disease without heart failure; I48.0 Paroxysmal atrial fibrillation; F03.90 Unspecified dementia, unspecified severity, without behavioral disturbance, psychotic disturbance, mood disturbance, and anxiety; Z86.73 Personal history of transient ischemic attack (TIA), and cerebral infarction without residual deficits; Z79.01 Long term (current) use of anticoagulants; Z79.82 Long term (current) use of aspirin; Z79.899 Other long term (current) drug therapy
CPT/HCPCS: 36415; 95816; 93005; 93306; 97161; 80061; 80053; 84443; 82607; 82550; 82746; 84484; 85025; 85610; 85730; 81001; 80306; 83036; 72170; 71045; 93880; 72125; 70450; J1630 ×2; 70553; 80048; 96361; 96374; 96376; 99285